=== PATIENT | female | born 1955 | race Caucasian/White ===

== ENCOUNTER 2019-12-27 08:56 | Outpatient (CLI) | payer MEDICARE, SELFPAY ==
--- NOTE | ~2019-12-27 | DEXA_ITS ---
Bone Density Report Name: Nellie Chirinos Age: 64 Sex: Female Ethnicity: White Date of : 1955 Indication: postmenopausal; height loss; prior fracture; hysterectomy; Referring Provider: Kilo Benson Study: Bone densitometry was performed. Exam Date: December 27, 2019 Accession number: [id number] Bone Density: Region BMD T-score Z-score Classification AP Spine (L1-L4) 0.894 -1.4 0.4 Osteopenia Femoral Neck (Left) 0.868 0.2 1.7 Normal Total Hip (Left) 0.882 -0.5 0.8 Normal Total Hip Bilateral Avg 0.856 -0.7 0.6 Normal Femoral Neck (Right) 0.788 -0.5 1.0 Normal Total Hip (Right) 0.829 -0.9 0.4 Normal World Health Organization criteria for BMD impression classify patients as: Normal (T-score at or above -1.0), Osteopenia (T-score between -1.0 and -2.5), or Osteoporosis (T-score at or below -2.5). 10-year Fracture Risk(1): Major Osteoporotic Fracture 12% Hip Fracture 0.6% Reported Risk Factors: [place] (), Neck BMD=0.788, BMI=32.3, previous fracture (1) FRAX(R) Version 3.08. Fracture probability calculated for an untreated patient. Fracture probability may be lower if the patient has received treatment. Previous Exams: Region Exam Age BMD T-score BMD Change BMD Change Date g/cm2 vs Baseline vs Previous AP Spine(L1-L4) 12/27/2019 64 0.894 -1.4 -0.077(-7.9%)# -0.056(-5.9%)# 03/04/2010 54 0.950 -0.9 -0.020(-2.1%) -0.020(-2.1%) 06/01/2005 49 0.970 -0.7 Total Hip(Left) 12/27/2019 64 0.882 -0.5 -0.135(-13.3%) -0.139(-13.6%) 03/04/2010 54 1.021 0.6 0.004(0.4%) 0.004(0.4%) 06/01/2005 49 1.017 0.6 Total Hip(Right) 12/27/2019 64 0.829 -0.9 -0.202(-19.6%) -0.184(-18.2%) 03/04/2010 54 1.013 0.6 -0.018(-1.7%) -0.018(-1.7%) 06/01/2005 49 1.031 0.7 *Denotes significance at 95% confidence level, LSC for AP Spine = 0.022 g/cm2, LSC for Total Hip = 0.027 g/cm2 Clinical Information Provided by Patient: Has had a low trauma fracture Has the following medical conditions: Hysterectomy Patient maximum height was 67 Menopause Age: 47 Onset of menses at age 10 Number of children 3 Impression: The patient has low bone mass, based on the Total Spine T-score. The patient has an estimated ten-year risk of hip fracture of 0.6% and an estimated ten-year risk of major fracture of 12%, based on the WHO FRAX algorithm. The patient has risk factors, including: previous fracture. No significant
--- NOTE | ~2019-12-27 | MM_ITS ---
EXAMINATION: MM screening [facility] BI w umair HISTORY: Screening mammogram TECHNIQUE: Craniocaudal and mediolateral oblique 3-D tomosynthesis images were obtained and synthetic 2-D images were generated. CAD analysis was submitted and interpreted. COMPARISON: 07/19/2016, 07/17/2015, 07/15/2014 bilateral digital screening mammogram examinations BREAST PARENCHYMAL COMPOSITION: The breasts are almost entirely fatty. FINDINGS: There is no evidence of suspicious mass, calcification, or architectural distortion to sugg est malignancy in either breast. There has been no suspicious interval change. IMPRESSION: 1. No mammographic evidence of malignancy. 2. Recommend routine screening mammography in one year. BI-RADS Category 1: Negative Reviewed, dictated and finalized at location A.
== END 2019-12-27 08:57 | disposition home or self-care (01) ==
PROVIDERS: PCP Family Medicine; Visit Provider Physician Assistant Medical
DX: Z12.31 Encounter for screening mammogram for malignant neoplasm of breast (principal); Z78.0 Asymptomatic menopausal state; M85.88 Other specified disorders of bone density and structure, other site
CPT/HCPCS: 77063; 77067; 77080

== ENCOUNTER → 2020-03-29 12:41 | Outpatient (CLI) | payer MEDICARE, SELFPAY ==
[2020-03-30 00:20] LABS: SARS-CoV-2 RNA PCR Negative
== END ==
PROVIDERS: Family Provider Family Medicine; PCP Family Medicine; Visit Provider Internal Medicine Cardiovascular Disease
DX: Z01.812 Encounter for preprocedural laboratory examination (principal); Z20.822 Contact with and (suspected) exposure to COVID-19
CPT/HCPCS: C9803; U0003; U0005

== ENCOUNTER 2020-04-01 00:25 | Day surgery (SDC) | payer MEDICARE, SELFPAY ==
[2020-03-31 15:15] VITALS: BMI 31.9
[2020-04-01] VITALS (9 sets, daily range): BP systolic 123–158; BP diastolic 71–95; PULSE 55–70; RESP 14–16; TEMP 36.2; O2SAT 96–100; BMI 32.4
--- NOTE | 2020-04-01 09:11 | P.SEDATION_ITS ---
Moderate Sedation Note-Pt Data Patient Data Allergies Allergy/AdvReac Type Severity Reaction Status Date / Time No Known Allergies Allergy Verified 03/31/20 15:31 Home Medications Medication Instructions Recorded Confirmed Type allopurinol 300 mg tablet 300 mg PO DAILY #90 tablet 01/15/19 03/31/20 Rx aspirin 81 mg tablet,delayed 81 mg PO DAILY 01/15/19 03/31/20 History release omeprazole 20 mg capsule,delayed 20 mg PO DAILY #90 cap 11/08/19 03/31/20 Rx release quinapril 40 mg tablet 40 mg PO DAILY #90 tablet 12/13/19 03/31/20 Rx spironolactone 25 mg tablet See Rx Instructions .ROUTE 01/02/20 03/31/20 Rx .COMPLEX #180 tablet fenofibrate 160 mg tablet 160 mg PO DAILY #90 tablet 01/07/20 03/31/20 Rx amlodipine 5 mg tablet 5 mg PO DAILY #30 tablet 03/04/20 03/31/20 Rx metoprolol tartrate 25 mg tablet 25 mg PO BID tablet 03/26/20 03/31/20 History Current Medications: Active Medications Sodium Chloride (Normal Saline Iv) 500 mls @ 100 mls/hr IV CONT .Q5H AMIE Sedation/Anesthesia: No previous sedation/anesthesia problems (including family history). [facility] Past Medical History Medical History (Updated 03/26/20 @ 10:14 by Pattie Crabtree CMA) Metal bone fixation hardware in place YOLI (obstructive sleep apnea) Surgical History Surgical History (Updated 03/26/20 @ 10:14 by Pattie Crabtree CMA) H/O total knee replacement History of hysterectomy Family History Family History Grandparent Hypertension Acute myocardial infarction Carcinoma of colon Father Hypertension Mother Carcinoma of colon, Onset Age: 82 Other Family history of cardiovascular disease Family history of gout Social History Social History (Updated 03/26/20 @ 10:15 by Pattie Crabtree CMA) Smoking status: Never smoker Second hand tobacco smoke exposure: No Alcohol intake: current Substance use: never Substance use type: does not use Living arrangements: with family Gender identity (if verbalized by the patient): Female Sexual Orientation (if Verbalized by the Patient): Straight or Heterosexual Spiritual care concerns: No Agree to blood products: Yes Mod Sed Physical Exam Physical Exam Pre Procedural Exam: Normal: Airway Hours since solid foods: 10 Hours since liquid intake: 10 Internal Medicine - PN: Obj Da Vital Signs Vital Signs: Vital Signs - 24 hr 04/01/20 07:53 Temperature 36.2 C L Pulse Rate 70 Respiratory Rate 16 Blood Pressure 158/95 H Pulse Oximetry 99 Meds/Results Medications: Active Medications Generic Name Dose Route Start Last Admin Trade Name Freq PRN Reason Stop Dose Admin Sodium Chloride 500 mls @ 100 mls/hr 04/01/20 07:40 Normal Saline Iv IV CONT .Q5H COUNTS INCLUDE 234 BEDS AT THE [facility] ASA Classification/Sedation ASA Classification/Sedation Risks: Risks, benefits and alternatives explained and patient/family accepted plan for sedation. Patient re-evaluated immediately prior to sedation.
--- NOTE | 2020-04-01 09:19 | WPDHPUPDATE1 ---
History and Physical Update Update Date/Time: 04/01/20 09:19 History and Physical has been reviewed, including an updated exam of the patient. There are NO changes in the patient's condition. Risks, benefits, and alternatives have been discussed and questions answered. Patient agrees to proceed with procedure.
--- NOTE | 2020-04-01 09:41 | WPDCARDPROC ---
Cardiac Cath Procedure Note Date of procedure:: 04/01/20 Performing physician:: Khai Smith MD Procedure Procedure note:: LEFT HEART CATHETERIZATION AND CORONARY ANGIOGRAM REPORT DATE OF PROCEDURE: 04/01/2020 INDICATION FOR PROCEDURE: chest pain, abnormal MPI BRIEF CLINICAL HISTORY: 64-year-old female with past medical history of hypertension, dyslipidemia. Patient was referred by Jonathan for coronary angiogram in the setting of chest discomfort and abnormal MPI. Patient's MPI from 03/12/2020 reportedly showed normal LV systolic function; ischemia in the mid anteroseptal and anterolateral blum. Benefits and risks of the procedure were discussed with the patient in depth, and informed consent was obtained prior to the procedure. Risks of the procedure include but are not limited to vascular complications including groin hematoma, retroperitoneal bleed, vessel perforation; periprocedural HI, cardiac arrhythmias, stroke, contrast induced nephropathy, and . After discussing all the benefits, risks and alternatives, patient was willing to proceed with the procedure. PROCEDURES PERFORMED: 1. Left heart catheterization- Selective left and right coronary angiogram; left ventriculogram and hemodynamic assessment 2. Selective right common femoral angiogram and deployment of Angio-Seal hemostatic device 3. Moderate sedation-CPT code 30868 MODERATE SEDATION: Midazolam 1 mg; fentanyl 25 mcg; Start time 0923 , Stop time 0937 ; Total [id number] time 14 minutes; Neetu Medrano RN was trained observer for moderate sedation. ACCESS SITE: Right common femoral artery PROCEDURE NOTE: After obtaining informed consent, patient was brought to catheterization lab and prepped and draped in a usual sterile manner. After local anesthesia with lidocaine, right common femoral artery access was taken with micropuncture needle followed by insertion of a 6 Martiniquais sheath. Selective left and right coronary angiogram was performed using 5 Martiniquais JL4 and JR4 catheters respectively. Orthogonal views were taken. Next, a 5 Martiniquais pigtail catheter was advanced in the LV cavity and was flushed with normal saline. LV pressure measurement was performed. After this, left ventriculogram was performed. The catheter was flushed again, and gradient across the aortic valve was measured on the pullback of the catheter. Finally, selective right common femoral angiogram was performed followed by successful deployment of Angio-Seal vascular closure device. Patient tolerated procedure well without any immediate procedure related complications. FINDINGS: LEFT MAIN CORONARY: The left main coronary is a large caliber vessel, no significant focal stenosis. The vessel bifurcates into LAD and dominant left circumflex branches. LEFT ANTERIOR DESCENDING ARTERY: The LAD is a medium caliber vessel, tortuous, tapers distally and becomes diminutive Very tortuous vessel near the LV apex. No significant focal stenosis seen in the LAD or its diagonal branch. LEFT CIRCUMFLEX ARTERY: The left circumflex artery is a large size, dominant vessel. It gives rise to very tortuous OM1 and OM2 branches and LPDA without significant focal stenosis. RIGHT CORONARY ARTERY: Small caliber, nondominant vessel, no significant focal stenosis. LEFT VENTRICULOGRAM: Normal LV systolic function, ejection fraction 60-70%. LVEDP 13 mmHg. HEMODYNAMIC ASSESSMENT: Opening pressure 154/85 mmHg , closing pressure 143/81 , LVEDP 13 mmHg , no significant gradient across aortic valve on the pullback of pigtail catheter. RIGHT COMMON FEMORAL ARTERY: Patent CONCLUSIONS: 1. No angiographically significant obstructive CAD; tortuous coronary arteries; left dominant coronary system. 2. Normal LV systolic function, ejection fraction 67%, LVEDP 13 mmHg. PLAN/RECOMMENDATIONS: Optimal medical treatment and risk factor modification. Follow up with Dr. Castillo. This document was completed by using [employer]
[2020-04-01] MEDS: SODIUM CHLORIDE 0.9% IV 1,000 ML 125 ML IV CONT (10:28)
--- NOTE | 2020-04-01 14:19 | SUR.PHASEII ---
Dsicharge instructions provided post [facility] including site care, Angioseal management, moderate sedation, and reportable s/s. Patient verbalizes understanding. PIV removed. VSS. Patient A & O x 4 and denies pain. Patient escorted to vehicle with staff, where she was picked up by her .
== END 2020-04-01 14:15 | disposition home or self-care (01) ==
PROVIDERS: Family Provider Family Medicine; PCP Family Medicine; Visit Provider Internal Medicine Cardiovascular Disease
PROC: 4A023N7 Measurement of Cardiac Sampling and Pressure, Left Heart, Percutaneous Approach (ICD-10-PCS; CPT 93452; principal; 2020-04-01 08:30)
DX: R94.39 Abnormal result of other cardiovascular function study (principal); R07.89 Other chest pain; I10 Essential (primary) hypertension; E78.5 Hyperlipidemia, unspecified; G47.33 Obstructive sleep apnea (adult) (pediatric); Z79.82 Long term (current) use of aspirin
CPT/HCPCS: 93458; C1760; C1887; C1894; C9803; G0269; J1644; J2250; J3010; J7040; U0003; U0005

== ENCOUNTER → 2020-06-14 01:17 | Outpatient (CLI) | payer MEDICARE, SELFPAY ==
[2020-06-14 18:53] LABS: SARS-CoV-2 RNA PCR Negative
== END ==
PROVIDERS: PCP Family Medicine; Visit Provider Internal Medicine Gastroenterology
DX: Z01.812 Encounter for preprocedural laboratory examination (principal); Z20.822 Contact with and (suspected) exposure to COVID-19
CPT/HCPCS: C9803; U0003; U0005

== ENCOUNTER 2020-06-17 02:16 | Day surgery (SDC) | payer MEDICARE, SELFPAY ==
[2020-06-06 11:04] VITALS: BMI 31.6
[2020-06-17 08:36] VITALS: BP 136/89; PULSE 68; RESP 18; TEMP 36.6; O2SAT 99; BMI 31.1
[2020-06-17] MEDS: LACTATED RINGERS 1,000 ML 150 ML IV CONT (08:46)
--- NOTE | 2020-06-17 09:11 | WPDANESEPPF ---
Anes - Initial Pre Proc Eval Procedure: Operation Date: 06/17/20 09:30 Proposed Procedures p Screening Colonoscopy - Jeremy Light MD Date/Time: 06/17/20 09:11 Surgeon: Jeremy Light MD Pre Op Diagnosis: family hx of colon ca, neoplasm screening Patient Data Age: 64 Gender: F Height: 5 ft 6 in Weight: 87.5 kg Last Vital Signs Temp 98 F 06/17/20 08:36 Pulse 68 06/17/20 08:36 Resp 18 06/17/20 08:36 BP 136/89 06/17/20 08:36 Pulse Ox 99 06/17/20 08:36 Allergies Allergy/AdvReac Type Severity Reaction Status Date / Time No Known Allergies Allergy Verified 06/17/20 08:34 Home Medications Medication Instructions Recorded Confirmed Type aspirin 81 mg tablet,delayed 81 mg PO DAILY 01/15/19 06/17/20 History release omeprazole 20 mg capsule,delayed 20 mg PO DAILY #90 cap 11/08/19 06/17/20 Rx release quinapril 40 mg tablet 40 mg PO DAILY #90 tablet 12/13/19 06/17/20 Rx fenofibrate 160 mg tablet 160 mg PO DAILY #90 tablet 01/07/20 06/17/20 Rx metoprolol tartrate 25 mg tablet 25 mg PO QAM tablet 04/25/20 06/17/20 History allopurinol 300 mg tablet 300 mg PO DAILY #90 tablet 04/29/20 06/17/20 Rx amlodipine 5 mg PO DAILY 06/06/20 06/17/20 History fiber 1 tab-cap PO DAILY 06/06/20 06/17/20 History glucosamine-chondroitin 1 tab-cap PO DAILY 06/06/20 06/17/20 History metoprolol tartrate 50 mg PO QPM 06/06/20 06/17/20 History spironolactone 50 mg PO DAILY 06/06/20 06/17/20 History Patient hx anesthesia problems: none Family hx anesthesia problems: none PMFSH Past Medical History Medical History (Updated 04/17/20 @ 14:02 by Hiram Sandoval MD) Metal bone fixation hardware in place YOLI (obstructive sleep apnea) using dental device Surgical History Surgical History (Updated 03/26/20 @ 10:14 by Pattie Crabtree CMA) H/O total knee replacement History of hysterectomy Family History Family History Grandparent Hypertension Acute myocardial infarction Carcinoma of colon Father Hypertension Mother Carcinoma of colon, Onset Age: 82 Other Family history of cardiovascular disease Family history of gout Social History Social History (Updated 03/26/20 @ 10:15 by Pattie Crabtree CMA) Smoking status: Never smoker Second hand tobacco smoke exposure: No Alcohol intake: current Substance use: never Substance use type: does not use Living arrangements: with family Gender identity (if verbalized by the patient): Female Spiritual care concerns: No Agree to blood products: Yes Anes - Eval Final PreProcedure Day of Procedure 06/17/20 09:11 Patient weight: overweight Heart: regular rate and rhythm Lungs: clear to auscultation Airway: Mallampati scale class II Neurological: alert and oriented Last oral intake: >/= 8 hours ASA classification: III Emergent: no Anesthetic plan: proceed Anesthesia type and monitoring: general GIVS and standard monitoring Informed Consent: The patient's anesthetic plan and its attendant risks and benefits were discussed with the patient/family/POA. Questions were solicited and answers provided to the satisfaction of the patient/family/POA.
--- NOTE | 2020-06-17 09:24 | PM.HPGS ---
History of Present Illness History of Present Illness Consent: Risks, benefits, and alternatives have been discussed and questions answered. Patient agrees to proceed with procedure. Chief complaint: family hx of colon ca, neoplasm screening Narrative: Nellie Chirinos is a 64 year old female referred for colon cancer screening. She has a strong family history of colon cancer on her mother's side Review of Systems Review of Systems: All systems reviewed & are unremarkable except as noted in HPI and below PMFSH Past Medical History Medical History Metal bone fixation hardware in place YOLI (obstructive sleep apnea) using dental device Surgical History Surgical History H/O total knee replacement History of hysterectomy Family History Family History Grandparent Hypertension Acute myocardial infarction Carcinoma of colon Father Hypertension Mother Carcinoma of colon, Onset Age: 82 Other Family history of cardiovascular disease Family history of gout Social History Social History Smoking status: Never smoker Second hand tobacco smoke exposure: No Alcohol intake: current Substance use: never Substance use type: does not use Living arrangements: with family Gender identity (if verbalized by the patient): Female Spiritual care concerns: No Agree to blood products: Yes Meds Home Medications and Allergies Home Medications Medication Instructions Recorded Confirmed Type aspirin 81 mg tablet,delayed 81 mg PO DAILY 01/15/19 06/17/20 History release omeprazole 20 mg capsule,delayed 20 mg PO DAILY #90 cap 11/08/19 06/17/20 Rx release quinapril 40 mg tablet 40 mg PO DAILY #90 tablet 12/13/19 06/17/20 Rx fenofibrate 160 mg tablet 160 mg PO DAILY #90 tablet 01/07/20 06/17/20 Rx metoprolol tartrate 25 mg tablet 25 mg PO QAM tablet 04/25/20 06/17/20 History allopurinol 300 mg tablet 300 mg PO DAILY #90 tablet 04/29/20 06/17/20 Rx amlodipine 5 mg PO DAILY 06/06/20 06/17/20 History fiber 1 tab-cap PO DAILY 06/06/20 06/17/20 History glucosamine-chondroitin 1 tab-cap PO DAILY 06/06/20 06/17/20 History metoprolol tartrate 50 mg PO QPM 06/06/20 06/17/20 History spironolactone 50 mg PO DAILY 06/06/20 06/17/20 History Allergies Allergy/AdvReac Type Severity Reaction Status Date / Time No Known Allergies Allergy Verified 06/17/20 08:34 Vital Signs Vital Signs - 24 hr 06/17/20 08:36 Temperature 36.6 C Pulse Rate 68 Respiratory Rate 18 Blood Pressure 136/89 Pulse Oximetry 99 Exam Resp: Auscultation: clear to auscultation bilaterally Cardio: Rate: regular rate Rhythm: regular rhythm GI: GI Palp: Yes Soft to palpation and No Tenderness to palpation present (GI) Assessment and Plan Assessment and plan (1) Colon cancer screening: Code(s): Z12.11 - Encounter for screening for malignant neoplasm of colon Status: Acute Assessment and Plan: Colonoscopy with possible biopsy or polypectomy or cautery or injection of substances.
[2020-06-17 09:53] VITALS: BP 84/46; PULSE 56; RESP 21; O2SAT 96
[2020-06-17 10:03] VITALS: BP 86/44; PULSE 56; RESP 19; O2SAT 97
== END 2020-06-17 10:48 | disposition home or self-care (01) ==
PROVIDERS: PCP Family Medicine; Visit Provider Internal Medicine Gastroenterology
PROC: 0DJD8ZZ Inspection of Lower Intestinal Tract, Via Natural or Artificial Opening Endoscopic (ICD-10-PCS; CPT 45378; principal; 2020-06-17 09:30)
DX: Z12.11 Encounter for screening for malignant neoplasm of colon (principal); Z80.0 Family history of malignant neoplasm of digestive organs; G47.33 Obstructive sleep apnea (adult) (pediatric); Z79.82 Long term (current) use of aspirin
CPT/HCPCS: G0105; C9803; J2704; J7120; U0003; U0005

== ENCOUNTER 2020-11-07 10:10 | Outpatient (CLI) | payer MEDICARE, SELFPAY ==
--- NOTE | ~2020-11-07 | US_ITS ---
EXAMINATION: US abdomen limited EXAM DATE: 11/07/2020 10:47 INDICATION: R74.8 - Abnormal levels of other serum enzymes. TECHNIQUE: Multiple grayscale and Doppler images of the abdomen right upper quadrant were obtained (b y a technologist who performed the scan) and subsequently reviewed. There is no prior study for clint carrasco. FINDINGS: The pancreatic head and body are normal in appearance. The pancreatic tail is not visualized. The l iver has normal echogenicity and contour. There are no focal liver lesions identified. There is no evidence of intrahepatic biliary duct dilation. Portal venous flow was seen in the hepatopedal, nor mal direction and has normal Doppler waveform. No right-sided hydronephrosis. Common bile duct measures 4 mm, which is normal. The gallbladder wall is normal in thickness, with ex pected amount of distention. No sonographic evidence of pericholecystic fluid. There is no cholelit hiases. Technologist performing exam reports patient did not demonstrate sonographic White's sign. Please note that this sign is less reliable in patients who have received pain medication. IMPRESSION: 1. Unremarkable abdominal ultrasound exam. Reviewed, dictated and finalized at location B.
== END 2020-11-07 10:11 | disposition home or self-care (01) ==
PROVIDERS: PCP Family Medicine; Visit Provider Physician Assistant Medical
DX: R74.8 Abnormal levels of other serum enzymes (principal); E11.9 Type 2 diabetes mellitus without complications
CPT/HCPCS: 76705

== ENCOUNTER 2021-03-12 10:37 | Outpatient (CLI) | payer MEDICARE, SELFPAY ==
--- NOTE | ~2021-03-12 | MM_ITS ---
EXAMINATION: MM screening [facility] BI w umair HISTORY: Screening mammogram TECHNIQUE: Craniocaudal and mediolateral oblique 3-D tomosynthesis images were obtained and synthetic 2-D images were generated. CAD analysis was submitted and interpreted. COMPARISON: 12/27/2019, 07/19/2016, 07/17/2015 BREAST PARENCHYMAL COMPOSITION: The breasts are almost entirely fatty. FINDINGS: There is no evidence of suspicious mass, calcification, or architectural distortion to sugg est malignancy in either breast. There has been no suspicious interval change. IMPRESSION: 1. No mammographic evidence of malignancy. 2. Recommend routine screening mammography in one year. BI-RADS Category 1: Negative Reviewed, dictated and finalized at location A. D HAND
== END 2021-03-12 10:38 | disposition home or self-care (01) ==
PROVIDERS: PCP Family Medicine; Visit Provider Physician Assistant Medical
DX: Z12.31 Encounter for screening mammogram for malignant neoplasm of breast (principal)
CPT/HCPCS: 77063; 77067

== ENCOUNTER 2022-05-14 08:16 | Outpatient (CLI) | payer MEDICARE, SELFPAY ==
--- NOTE | ~2022-05-14 | MM_ITS ---
EXAMINATION: MM screening [facility] [place] BI w umair HISTORY: Screening mammogram TECHNIQUE: Craniocaudal and mediolateral oblique 3-D tomosynthesis images were obtained and synthetic 2-D images were generated. CAD analysis was submitted and interpreted. COMPARISON: 03/12/2021, 12/27/2019, 07/09/2016 BREAST PARENCHYMAL COMPOSITION: The breasts are almost entirely fatty. FINDINGS: No suspicious mass, calcification, or architectural distortion are identified in either nadira ast to suggest malignancy. There has been no suspicious interval change. IMPRESSION: 1. No mammographic evidence of malignancy. 2. Recommend routine screening mammography in one year. BI-RADS Category 1: Negative Reviewed, dictated and finalized at location A. E FUND MANAGER
== END 2022-05-14 08:17 | disposition home or self-care (01) ==
LOC: ANHIMG 08:17
PROVIDERS: PCP Family Medicine; Visit Provider Family Medicine
DX: Z12.31 Encounter for screening mammogram for malignant neoplasm of breast (principal)
CPT/HCPCS: 77063; 77067

== ENCOUNTER 2023-06-14 16:11 | Outpatient (CLI) | payer MEDICARE, SELFPAY ==
--- NOTE | ~2023-06-14 | MM_ITS ---
EXAMINATION: MM screening [facility] BI w umair HISTORY: Screening mammogram TECHNIQUE: Craniocaudal and mediolateral oblique 3-D tomosynthesis images were obtained and synthetic 2-D images were generated. CAD analysis was submitted and interpreted. COMPARISON: 05/14/2022, 03/12/2021 bilateral screening mammogram examinations BREAST PARENCHYMAL COMPOSITION: The breasts are almost entirely fatty. FINDINGS: Scattered bilateral benign calcifications. There is no evidence of suspicious mass, calcifi cation, or architectural distortion to suggest malignancy in either breast. There has been no suspici ous interval change. IMPRESSION: 1. No mammographic evidence of malignancy. 2. Recommend routine screening mammography in one year. BI-RADS Category 1: Negative Reviewed, dictated and finalized at location A.
== END 2023-06-14 16:12 | disposition home or self-care (01) ==
PROVIDERS: PCP Family Medicine; Visit Provider Family Medicine
DX: Z12.31 Encounter for screening mammogram for malignant neoplasm of breast (principal)
CPT/HCPCS: 77063; 77067

== ENCOUNTER 2024-01-16 09:20 | Outpatient (CLI) | payer MEDICARE, SELFPAY ==
--- NOTE | ~2024-01-16 | DEXA_ITS ---
Bone Density Report Name: ROSALINA HALEY Age: 68 Sex: Female Ethnicity: White Date of : 1955 Indication: osteopenia; hysterectomy; Referring Provider: KURT NUNN Study: Bone densitometry was performed. Exam Date: January 16, 2024 Accession number: [id number] Bone Density: Region BMD T-score Z-score Classification AP Spine(L1-L4) 0.994 -0.5 1.6 Normal Femoral Neck (Left) 0.819 -0.3 1.5 Normal Total Hip (Left) 0.837 -0.9 0.6 Normal Femoral Neck (Right) 0.791 -0.5 1.3 Normal Total Hip (Right) 0.862 -0.7 0.9 Normal Total Hip Mean 0.850 -0.8 0.8 Normal World Health Organization criteria for BMD impression classify patients as: Normal (T-score at or above -1.0), Osteopenia (T-score between -1.0 and -2.5), or Osteoporosis (T-score at or below -2.5). 10-year Fracture Risk: FRAX not reported because: All T-scores for Spine Total, Hip Total, Femoral Neck at or above -1.0 Previous Exams: Region Exam Age BMD T-score BMD Change BMD Change Date g/cm2 vs Baseline vs Previous AP Spine (L1-L4) 01/16/2024 68 0.994 -0.5 0.100 (11.2%)* 0.100 (11.2%)* 12/27/2019 64 0.894 -1.4 Total Hip(Left) 01/16/2024 68 0.837 -0.9 -0.045 (-5.1%) -0.045 (-5.1%) 12/27/2019 64 0.882 -0.5 Total Hip(Right) 01/16/2024 68 0.862 -0.7 0.033 (4.0%)* 0.033 (4.0%)* 12/27/2019 64 0.829 -0.9 *Denotes significance at 95% confidence level, LSC for AP Spine = 0.022 g/cm2, LSC for Total Hip = 0.027 g/cm2 Clinical Information Provided by Patient: Has the following medical conditions: Hysterectomy Patient maximum height was 67 Menopause Age: 47 Drinks caffeinated beverages Onset of menses at age 10 Number of children 3 Impression: The patient has normal bone mass. The BMD for the Total Hip(Left) decreased, changing by -5.1% since the last DXA exam. Discussion: BONE DENSITY IS ABOVE THE MINIMUM DESIRABLE LEVEL AT ALL SKELETAL SITES TESTED. This patient?s bone mineral density is above the minimum desirable level (T-score -1.0 or better) at all sites measured. The patient should follow a healthful lifestyle (good nutrition with adequate calcium and vitamin D, and appropriate weight-bearing exercise). Follow-Up: Consider repeating this study in 3 to 4 years to reassess this patient's status, or sooner if there is some new clinical indication. Reported by: CHRISTA on 01/16/2024 9:52:00 AM. Reviewed, dictated and finalized at location Cecil CALIXTO
== END 2024-01-16 09:21 | disposition home or self-care (01) ==
LOC: ANHIMG 09:21
PROVIDERS: PCP Family Medicine; Visit Provider Student in an Organized Health Care Education/Training Program
DX: N95.9 Unspecified menopausal and perimenopausal disorder (principal)
CPT/HCPCS: 77080

== ENCOUNTER 2024-08-16 10:21 | Outpatient (CLI) | payer MEDICARE, SELFPAY ==
--- NOTE | ~2024-08-16 | MM_ITS ---
EXAMINATION: MM screening aria BI w umair HISTORY: Screening TECHNIQUE: Craniocaudal and mediolateral oblique 3-D tomosynthesis images were obtained and synthetic 2-D images were generated. CAD analysis was submitted and interpreted. COMPARISON: Comparison to multiple prior studies sequentially, with oldest reviewed study dated 07/16. BREAST PARENCHYMAL COMPOSITION: Not dense: There are scattered areas of fibroglandular density. FINDINGS: There is no evidence of suspicious mass, calcification, or architectural distortion to sugg est malignancy in either breast. There has been no suspicious interval change. IMPRESSION: 1. No mammographic evidence of malignancy. 2. Recommend routine screening mammography in one year. BI-RADS Category 1: Negative Reviewed, dictated and finalized at location B.
--- OUTSIDE RECORDS SUMMARY | 2024-08-16 11:13 | XMS_ITS | Encounter Summary ---
Author Organization [facility] Address [address] [address] Care Team Providers Care Chief Minister Name Role Phone Galo Helms MD Unavailable [phone] Hiram Sandoval MD Primary Care Provider [phone] Encounter Details Date Type Department Care Team (Late st Contact Info) Description 07/27/2023 Lab Requisition [facility] - DermPath Lab [address] [place] [address] Mayda Gomez DO [address] [place] [address] Social History Tobacco Use Types Packs/Day Years Used Date Smoking Tobacco: Never Smokeless Tobacco: Never Alcohol Use Standard Drinks/Week Comments No 0 (1 standard drink = 0.6 oz pur e alcohol) rarely Comments Unknown Sex and Gender Information Value Date Recorded Sex Assigned at Not on file Legal Sex Female 12:33 PM CDT Gender Identity Not on file Sexual Orientation Not on file documented as of this encounter Functional Status * Is person deaf or have serious hearing difficulty? Answer Date of Assessment Author No 01/13/2018 11:18 AM Idania Laboy APRN-CNP * Is person blind or have serious difficulty seeing? Answer Date of Assessment Author No 01/13/2018 11:18 AM Idania Laboy APRN-CNP * Does person have serious difficulty walking/climbing stairs? Answer Date of Assessment Author No 01/13/2018 11:18 AM Idania Laboy, GUN SYNCHRONIZER-GUTTER HANGER * Does person have difficulty dressing/bathing? Answer Date of Assessment Author No 01/13/2018 11:18 AM Idania Laboy, GUN SYNCHRONIZER-GUTTER HANGER * Does person have difficulty doing errands alone? Answer Date of Assessment Author No 01/13/2018 11:18 AM Idania Laboy, GUN SYNCHRONIZER-GUTTER HANGER documented as of this encounter Mental Status * Does person have difficulty concentrating/remembering/making decisions? Answer Entry Date Author No 01/13/2018 11:18 AM Idania Laboy, GUN SYNCHRONIZER-GUTTER HANGER documented in this encounter Plan of Treatment Not on file documented as of this encounter Goals Goal Patient Goal Type Associated Problems Recent Progress Patient-Stated? Author Medication Management General On track( 023 1:44 PM SAND CUTTER OPERATOR) No Natacha Donald RN Note: Expected end date: on-going Interventions: Take all medications as prescribed Let your doctor know right away about any changes in your medications Make sure to request a refill of your medication at least one week prior to your last dose documented as of this encounter Procedures Procedure Name Priority Date/Time Associated Diagnosis Comments DERMATOPATHOLOGY Routine 07/27/2023 9:35 AM CDT documented in this encounter Results * DERMATOPATHOLOGY (07/27/2023 9:35 AM CDT) Case Report Dermatopathology Report Case: [id number] Authorizing Provider: Mayda Gomez DO Collected: 07/27/2023 09:35 AM Ordering Location: [facility] - Received: 07/28/2023 03:46 PM DermPath Lab Pathologist: Levy Shabazz MD Specimen: Skin, right lower mucoral lip 4 1:27 PM CDT DERMATOPATHOLOGY LABORATORY Final Diagnosis Specimen A. SKIN, right lower mucoral lip: MUCOSAL LENTIGO (LABIAL MELANOTIC MACULE) (L81.4) 4 1:27 PM CDT DERMATOPATHOLOGY LABORATORY at 1327 CDT Clinical History Mucoral lentigo; r/o atypia. 4 1:27 PM CDT DERMATOPATHOLOGY LABORATORY Gross Description Specimen A: Received is one formalin filled container labeled with the patient's name and designated right lower mucoral lip. The specimen consists of a shave biopsy measuring 7x4x1 mm. Jar 0. 4 1:27 PM CDT DERMATOPATHOLOGY LABORATORY Microscopic Description Specimen A. SKIN, right lower mucoral lip: The specimen is taken from a mucocutaneous surface and shows acanthosis and prominent pigmentation in the basal layer. The keratinocytes are mature and there is a minimal increase in melanocytes. 4 1:27 PM CDT DERMATOPATHOLOGY LABORATORY Disclaimer An external and internal positive and negative controls are appropriate for the histochemical, immunohistochemical and immunofluorescence stain(s) in this case (if any), except where stated explicitly. The performance characteristics of the stain(s) cited in this report were developed and its performance characteristic determined by the Dermatopathology Laboratory at [facility], directed by Dr. Bunny Shabazz. These tests need not be, and therefore are not, approved by the [place] Food and Drug Administration. The tests are used for clinical purposes. Billing Codes Specimen Charges Stain Charges 43879 1 4 1:27 PM CDT DERMATOPATHOLOGY LABORATORY Embedded Images 4 1:27 PM CDT DERMATOPATHOLOGY LABORATORY Pathology/Cytolo gy TISSUE SPECIMEN FROM SKIN / Unknown 07/27/2023 9:35 AM CDT 07/28/2023 3:46 PM CDT us Mayda Gomez DO LAB - PATHOLOGY/CYTOLOGY ORDERABLES Final Result DERMATOPATHOLOGY LABORATORY [facility] - Department of Dermatology [address], [address] [phone] documented in this encounter Visit Diagnoses Not on filedocumented in this encounter Care Teams Chief Minister Relationship Specialty Start Date End Date Hiram Sandoval MD [address] [place] [address] PCP - General Family Medicine 4/30/18 [place] [id number] [address] Orthopedic Surgery 07/04/17 documented as of this encounter
--- OUTSIDE RECORDS SUMMARY | 2024-08-16 11:13 | XMS_ITS | Clinical Summary ---
Author Organization [facility] Address [address] [place] [address] Care Team Providers Care Solar Panel Technician Name Role Phone Galo Helms MD Unavailable [phone] Hiram Sandoval MD Primary Care Provider [phone] Source Comments [facility],non-owned Affiliates and Associated Physician Practices is amultiple site organization consisting of ambulatory clinics and hospital sitesin [place], [place], [place] and [place]. This disclosure is being madepursuant to the Care Everywhere program and may not contain all information available regarding this patient. Last updated 17.[facility] I AM AT Allergies No known active allergies Medications * Be aware that medications may not be up to date on this document. Alwaysverify current medications with the patient. allopurinol (ZYLOPRIM) 300 MG tablet every other day TAKES IN THE PM 03/11/2017 Active Glucosamine-Cho ndroit-Vit C-Mn (GLUCOSAMINE 1500 COMPLEX PO) Take by mouth once daily Active FIBER PO Take by mouth once daily Active omeprazole (PRILOSEC) 20 MG capsule Take 1 (one) capsule by mouth at bedtime Active hydroCHLOROthia zide (HYDRODIURIL) 12.5 MG 06/03/2021 Active quinapril (ACCUPRIL) 40 MG tablet Take 1 (one) tablet by mouth 10/23/2020 Active metFORMIN (GLUCOPHAGE) 850 MG tablet TAKE 1 TABLET BY MOUTH TWICE A DAY WITH A MEAL 08/31/2021 Active atorvastatin (Lipitor) 10 MG tablet Take 1 (one) tablet by mouth at bedtime Active amLODIPine (Norvasc) 5 MG tablet Take 1 (one) tablet by mouth once daily 12/24/2021 Active Active Problems Problem Noted Date Diagnosed Date History of total right knee replacement 02/22/20 18 Status post total left knee replacement 11/01/19 18 Primary osteoarthritis of left knee 08/25/2017 Primary osteoarthritis of right knee 07/04/2017 Resolved Problems Problem Noted Date Diagnosed Date Resolved Date Closed fracture of right tib ial plateau with routine healing 07/04/2017 01/02/2018 Immunizations Immunization Administration Dates Next Due iNFLUENZA VACCINE, RECOM-IGLESIAS, QUADR. (FLUBLOCK QUADRIVALENT; 18Y+) (RIV4) 12/13/2017 Family History Medical History Relation Name Comments Alcohol abuse Brother 1 Cancer - Colon Mother Diabetes - Type 2 Sister Relation Name Status Comments Brother 1 Alive Brother 2 Alive Father Alive Mother Sister Alive Social History Tobacco Use Types Packs/Day Years Used Date Smoking Tobacco: Never Smokeless Tobacco: Never Alcohol Use Standard Drinks/Week Comments No 0 (1 standard drink = 0.6 oz pur e alcohol) rarely Comments Unknown Sex and Gender Information Value Date Recorded Sex Assigned at Not on file Legal Sex Female 12:33 PM CDT Gender Identity Not on file Sexual Orientation Not on file Last Filed Vital Signs Vital Sign Reading Time Taken Comments Blood Pressure 158/102 03/25/2022 1:45 PM OIL WELL DRILLER Pulse 87 03/25/2022 1:45 PM OIL WELL DRILLER Temperature 36.6 C (97.9 F) 09/10/2021 2:10 PM CDT Respiratory Rate 16 01/13/2018 8:35 AM OIL WELL DRILLER Oxygen Saturation 99% 03/25/2022 1:45 PM OIL WELL DRILLER Inhaled Oxygen Concentration - - Weight 82.6 kg (182 lb) 03/25/2022 1:45 PM OIL WELL DRILLER Height 167.6 cm (5' 6) 03/25/2022 1:45 PM OIL WELL DRILLER Body Mass Index 29.38 03/25/2022 1:45 PM OIL WELL DRILLER Plan of Treatment Health Maintenance Due Date Last Done Comments BONE DENSITY TESTING 1955 COLOGUARD (AGES 45-75) - COLON CA SCREENING 1953 COLON MONITORING 1953 COLONOSCOPY - COLON CA SCREENING 1953 CT COLONOGRAPHY - COLON CA SCREENING 1955 Colorectal Cancer Screening 1955 FIT - COLON CA SCREENING 1953 FLEX SIG - COLON CA SCREENING 1955 MAMMOGRAM 1953 DTAP/TDAP/TD VACCINES (1 - Tdap) 1972 PNEUMOCOCCAL VACCINE 50+ (1 of 1 - PCV) 11/30/2003 ZOSTER VACCINE (1 of 2) 11/30/2003 COVID-19 VACCINE (4 - season) 2023 12/09/2020, 05/01/2020, 04/10/2020 DEPRESSION SCREENING 03/07/2024 MEDICARE AWV CALENDAR YEAR 2024 INFLUENZA VACCINE (Season Ended) 2024 12/09/2020, 11/13/2019, 12/13/2017 SCREENING FOR DIABETES 03/25/2025 , 11/04/2021, 09/10/2021, Additional history exists Respiratory Syncytial Virus (RSV) Vaccine Pt: or over 60 yrs (1 - 1-dose 75+ series) 2028 HEPATITIS C SCREENING Completed 09/10/2021 HEPATITIS B VACCINE Aged Out No longe r eligible based on patient's age to complete this topic HIB VACCINE Aged Out No longer eligi ble based on patient's age to complete this topic HPV VACCINE Aged Out No longer eligi ble based on patient's age to complete this topic MENINGOCOCCAL (Group B) VACCINE SHARED DECISION-MAKING Aged Out No longer eligible based on patient's age to complete this topic MENINGOCOCCAL GROUPS A/C/Y/W VACCINE Aged Out No longer eligible based on patient's age to complete this topic Goals Goal Patient Goal Type Associated Problems Recent Progress Patient-Stated? Author Medication Management General On track( 023 1:44 PM OIL WELL DRILLER) No Natacha Donald, RN Note: Expected end date: on-going Interventions: Take all medications as prescribed Let your doctor know right away about any changes in your medications Make sure to request a refill of your medication at least one week prior to your last dose Medical Devices Implanted Type Area Psychiatric Tech Device Identifier Shelf Expiration Date Model / Serial / Lot Cmnt Bone Cblt 40gm Hvisc Strl Implanted:Qty: 2 on 10/12/2017 by Galo Helms MD at [facility] Left: Knee [employer] 12/04/2018 600-15-000 / / [id number] Nail 10mm 31.5cm Im Tib Ti Kendrick Strl Grn Implanted:Qty: 1 on 10/12/2017 by Galo Helms MD at [facility] Left: Knee Synthes [employer] 06/02/2027 [id number] / / [id number] Cmpnt Fem Kn Lt Cr Cmnt Prm Vngrd Intlk Implanted:Qty: 1 on 10/12/2017 by Galo Helms MD at [facility] Left: Knee [employer] 07/19/2027 [id number] / / [id number] Cmpnt Ptlr Std 28mm 3 Pg Kn Ser A Implanted:Qty: 1 on 10/12/2017 by Galo Helms MD at [facility] Left: Knee [employer] 01/01/2022 [id number] / / [id number] As Tibial Bearing E1 Antioxidant [id number] Implanted:Qty: 1 on 10/12/2017 by Galo Helms MD at [facility] Left: Knee 06/30/2021 [id number] / / [id number] As Tibial Bearing Implanted:Qty: 1 on 01/11/2018 by Galo Helms MD at [facility] Right: Knee [employer] [id number] / / [id number] Cmnt Bone Cblt 40gm Hvisc Strl Implanted:Qty: 1 on 01/11/2018 by Galo Helms MD at [facility] Right: Knee [employer] 600-15- / / [id number] Cmpnt Ptlr Std 31mm 3 Pg Kn Ser A Implanted:Qty: 1 on 01/11/2018 by Galo Helms MD at [facility] Right: Knee [employer] 12/09/2022 [id number] / / [id number] Cmpnt Fem Kn Rt Cr Cmnt Prm Vngrd Intlk Implanted:Qty: 1 on 01/11/2018 by Galo Helsm MD at [facility] Right: Knee [employer] 11/20/2027 [id number] / / [id number] Tray Tib 71mm As Mx Kn Intlk Cocr 1 Pc Implanted:Qty: 1 on 01/11/2018 by Galo Helms MD at [facility] Right: Knee [employer] 12/02/2027 [id number] / / [id number] Procedures Procedure Name Priority Date/Time Associated Diagnosis Comments COMPREHENSIVE METABOLIC PANEL Routine 03/25/2022 2:51 PM OIL WELL DRILLER Nonalcoholic fatty liver disease HEPATITIS C AB SCREEN RFLX NAAT QUANT STAT 09/10/2021 4:21 PM CDT Nonalcoholic fatty liver disease from Last 3 Months or Most Recently Relevant to Health Maintenance Results * (ABNORMAL) COMPREHENSIVE METABOLIC PANEL (03/25/2022 2:51 PM OIL WELL DRILLER) BUN 17 7 - 26 mg/dL 03/25/2022 3:57 PM [facility] Creatinine 0.77 0.56 - 0.96 mg/dL 03/25/2022 3:57 PM [facility] Sodium 143 136 - 145 mmol/L 03/25/2022 3:57 PM [facility] Potassium 4.4 3.5 - 4.5 mmol/L 03/25/2022 3:57 PM [facility] Chloride 106 98 - 107 mmol/L 03/25/2022 3:57 PM [facility] CO2 23 22 - 29 mmol/L 03/25/2022 3:57 PM [facility] Glucose 98 70 - 115 mg/dL 03/25/2022 3:57 PM [facility] Calcium 10.2 8.4 - 10.2 mg/dL 03/25/2022 3:57 PM [facility] Protein Total 7.5 6.0 - 8.3 g/dL 03/25/2022 3:57 PM [facility] Albumin 4.2 3.4 - 5.0 g/dL 03/25/2022 3:57 PM [facility] Bilirubin Total 1.3(H) 0.2 - 1.2 mg/dL 03/25/2022 3:57 PM [facility] Alkaline Phosphatase 73 40 - 150 U/L 03/25/2022 3:57 PM [facility] ALT 26 5 - 55 U/L 03/25/2022 3:57 PM [facility] AST 18 5 - 34 U/L 03/25/2022 3:57 PM [facility] Anion Gap 18 8 - 18 03/25/2022 3:57 PM [facility] BUN/Creatinine Ratio 22 7 - 23 03/25/2022 3:57 PM [facility] Osmolality Calculated 298 270 - 300 mOsm/kg 03/25/2022 3:57 PM [facility] Albumin/Globulin Ratio 1.3 1.1 - 2.3 03/25/2022 3:57 PM [facility] eGFR by CKD-EPI 84(L) >=90 mL/min/1.7 3 m2 03/25/2022 3:57 PM [facility] Blood BLOOD SPECIMEN / Unknown Lab Venipuncture / Unknown 03/25/2022 2:51 PM OIL WELL DRILLER 03/25/2022 3:[address] [facility] LAB - CHEMISTRY ORDERABLES Final Result [facility] [address] [place] [phone], [facility] [phone] * HEPATITIS C AB SCREEN RFLX NAAT QUANT (09/10/2021 4:21 PM CDT) Hepatitis C Antibody Non-react cristina Non-reac tive 09/10/2021 6:20 PM CDT [facility] Comment:Hepatitis C Antibody screen indicates no serologic evidence of past or current infection with Hepatitis C Virus. Patients with unexplained liver disease who are immunocompromised or suspected of having acute Hepatitis C infection may benefit from Nucleic Acid Test (LISA) for Hepatitis C Viral RNA to confirm Hepatitis C status. Blood BLOOD SPECIMEN / Unknown Lab Venipuncture / Unknown 09/10/2021 4:21 PM CDT 09/10/2021 4:54 PM CDT us Petra Kamara MD LAB - CHEMISTRY ORDERABLES Final Result [facility] [address] [place] [address], [facility] [phone] from Last 3 Months or Most Recently Relevant to Health Maintenance Insurance [facility] MANAGED MEDICARE ADV [facility] MANAGED MEDICARE ADV Advance Directives * Full Code (Latest Code Status on File) Date Activated Date Inactivated Comments 01/11/2018 5:54 PM 01/13/2018 12:49 PM * Full Code Date Activated Date Inactivated Comments 10/12/2017 4:54 PM 10/14/2017 1:32 PM Care Teams Solar Panel Technician Relationship Specialty Start Date End Date Hiram Sandoval MD [address] [place] [phone] PCP - General Family Medicine 07/04/17 [place] [id number] [phone] Orthopedic Surgery 07/04/17
--- OUTSIDE RECORDS SUMMARY | 2024-08-16 11:13 | XMS_ITS | Referral Summary ---
Author Organization [facility] [place] [address] Address [address] [address] [place] [address] Care Team Providers Care Screw Down Name Role Phone Hiram Sandoval MD Primary Care Provider [phone] Allergies No known active allergies Medications quinapriL (ACCUPRIL) 40 mg tablet Take 1 tablet (40 mg total) by mouth daily Active gluc desir/chondro desir A/vit C/Mn (GLUCOSAMINE 1500 COMPLEX ORAL) Take by mouth Active omeprazole (PriLOSEC) 20 mg capsule Take 1 capsule (20 mg total) by mouth daily Active allopurinoL (ZYLOPRIM) 300 mg tablet Take 1 tablet (300 mg total) by mouth daily Active nitroglycerin (NITROSTAT) 0.[address] 1 tablet (0.4 mg total) under the tongue every 5 (five) minutes as needed for chest pain May repeat dose q 5 min, up to 3 doses total 25 tablet 3 03/14/2020 Active atorvastatin (LIPITOR) 10 mg tablet 10/05/2021 Active hydroCHLOROthia zide (HYDRODIURIL) 12.5 mg tablet 09/19/2021 Acti ve metFORMIN (GLUCOPHAGE) 850 mg tablet TAKE 1 TABLET BY MOUTH TWICE A DAY WITH A MEAL 08/31/2021 Active Active Problems Problem Noted Date Diagnosed Date Lipid screening 11/04/2021 YOLI (obstructive sleep apnea) 10/23/2020 Hyperlipidemia LDL goal <100 03/14/2020 Anxiety 03/14/2020 Essential hypertension 03/14/2020 Abnormal stress test 03/14/2020 Atypical chest pain 03/14/2020 Palpitations 03/14/2020 Social History Tobacco Use Types Packs/Day Years Used Date Smoking Tobacco: Never Cigarettes Smokeless Tobacco: Never Tobacco Cessation:Counseling Given: Not Answered Alcohol Use Standard Drinks/Week Comments Never 0 (1 standard drink = 0.6 oz pur e alcohol) Personal Safety Answer Date Recorded Getting School Help Needed Not on file 05/04 Comments Unknown Sex and Gender Information Value Date Recorded Sex Assigned at Not on file Legal Sex Female 12:11 PM ENT CONSULTANT Gender Identity Female 03/17/2020 3:40 PM ENT CONSULTANT Sexual Orientation Straight 03/17/2020 3: 40 PM ENT CONSULTANT Last Filed Vital Signs Vital Sign Reading Time Taken Comments Blood Pressure 138/84 11/08/2023 8:14 AM CDT Pulse 91 11/08/2023 8:14 AM CDT Temperature - - Respiratory Rate - - Oxygen Saturation 99% 11/08/2023 8:14 AM CDT Inhaled Oxygen Concentration - - Weight 77.1 kg (170 lb) 11/08/2023 8:14 AM CDT Height 167.6 cm (5' 6) 11/08/2023 8:14 AM CDT Body Mass Index 27.44 11/08/2023 8:14 AM CDT Plan of Treatment Not on file Insurance [facility] MEDICARE ADVANTAGE [facility] MEDICARE ADVANTAGE Care Teams Screw Down Relationship Specialty Start Date End Date Hiram Sandoval MD PCP - General Family Medicine 03/05/20
--- OUTSIDE RECORDS SUMMARY | 2024-08-16 11:13 | XMS_ITS | Clinical Summary ---
Author Organization [facility] [place] [address] Address [address] [place] [address] Care Team Providers Care Engineering Test Specialist Name Role Phone Hiram Sandoval MD Primary Care Provider [phone] Allergies No known active allergies Medications quinapriL [...] 03/14/2020 Atypical chest pain 03/14/2020 Palpitations 03/14/2020 Surgical History Surgery Date Site/Laterality Comments HYSTERECTOMY 03/07/1999 - 03/06/2000 JOINT REPLACEMENT 03/07/2016 - 03/06/2017 Medical History Medical History Date Comments Anxiety Cataract 2018 Hypertension 1992 Kidney stone 2008 Sleep apnea Family History Medical History Relation Name Comments Hypertension Father [place] Cancer Mother Pinky Hypertension Mother Pinky Hypertension Paternal Grandmother Raquel Relation Name Status Comments Father [place] Mother Pinky Paternal Grandmother Raquel Social History Tobacco Use Types Packs/Day Years [...] on file Legal Sex Female 12:11 PM SOFTWARE COMPUTER SPECIALIST Gender Identity Female 03/17/2020 3:40 PM SOFTWARE COMPUTER SPECIALIST Sexual Orientation Straight 03/17/2020 3: 40 PM SOFTWARE COMPUTER SPECIALIST Obstetrics History Last Filed Vital Signs Vital Sign Reading [...] 11/08/2023 8:14 AM CDT Plan of Treatment Health Maintenance Due Date Last Done Comments Breast Cancer Screening-Mammogram 1955 Colon Cancer Screening-Colonoscopy 1953 Depression Screening 1953 Fall Risk Assessment 1955 Hepatitis C Screening 1955 Osteoporosis Screening-Bone Density Scan 1953 DTaP/Tdap/Td Vaccine (1 - Tdap) 1964 Hepatitis B Screening 11/30/1971 Well Visit 65+ 2018 Zoster Vaccine (2 of 2) 02/22/2020 12/28/2019 Pneumococcal vaccine 65+ (2 of 2 - PPSV23) 2020 11/30/2019 Influenza Vaccine (Season Ended) 2024 11/13/19 20, 12/13/2017 Insurance [facility] MEDICARE ADVANTAGE [facility] Address: [address] [address] [place] [address] [facility] MEDICARE ADVANTAGE [facility] Address: [address] [address] [place] [address] Care Teams Engineering Test Specialist Relationship Specialty Start Date End Date Hiram Sandoval MD PCP - General Family Medicine 03/05/20
--- OUTSIDE RECORDS SUMMARY | 2024-08-16 11:13 | XMS_ITS | Encounter Summary ---
Author Organization [facility] Address [address] [place] [address] Care Team Providers Care Camera Systems Engineer Name Role Phone Galo Helms MD Unavailable [phone] Hiram Sandoval MD Primary Care Provider [phone] Encounter Details Date Type Department Care Team (Late st Contact Info) Description 08/10/2022 Lab Requisition [facility] - DermPath Lab [address] [place] [address] Mayda Gomez DO [address] [facility] [address] [place] [address] Social History Tobacco Use Types Packs/Day Years [...] Author No 01/13/2018 11:18 AM Idania Laboy, COLLECTION ANALYST-[employer] PROPRIETOR * Does person have difficulty dressing/bathing? Answer Date of Assessment Author No 01/13/2018 11:18 AM Idania Laboy, COLLECTION ANALYST-[employer]XI PROPRIETOR * Does person have difficulty doing errands alone? Answer Date of Assessment Author No 01/13/2018 11:18 AM Idania Laboy, COLLECTION ANALYST-[employer]XI PROPRIETOR documented as of this encounter Mental Status * Does person have difficulty concentrating/remembering/making decisions? Answer Entry Date Author No 01/13/2018 11:18 AM Idania Laboy, COLLECTION ANALYST-[employer]XI PROPRIETOR documented in this encounter Plan of Treatment Not on file documented as of this encounter Goals Goal Patient Goal Type Associated Problems Recent Progress Patient-Stated? 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[employer]) No Natacha Donald RN Note: Expected end date: on-going Interventions: Take all medications as prescribed Let your doctor know right away about any changes in your medications Make sure to request a refill of your medication at least one week prior to your last dose documented as of this encounter Procedures Procedure Name Priority Date/Time Associated Diagnosis Comments DERMATOPATHOLOGY Routine 08/10/2022 8:36 AM CDT documented in this encounter Results * DERMATOPATHOLOGY (08/10/2022 8:36 AM CDT) Case Report Dermatopathology Report Case: [id number] Authorizing Provider: Mayda Gomez DO Collected: 08/10/2022 08:36 AM Ordering Location: [facility] DermPath Lab Received: 08/10/2022 12:22 PM Pathologist: Zo Horna MD Specimen: Skin, right forearm 3 3:09 PM CDT DERMATOPATHOLOGY LABORATORY Final Diagnosis Specimen A. SKIN, right forearm: DERMAL SCAR RESIDUAL SQUAMOUS CELL CARCINOMA NOT IDENTIFIED (L90.5) 3 3:09 PM CDT DERMATOPATHOLOGY LABORATORY at 1509 CDT Clinical History SCCIS Bx proven 3 3:09 PM CDT DERMATOPATHOLOGY LABORATORY Gross Description Specimen A: Received is one formalin filled container labeled with the patient's name and designated right forearm. The specimen consists of a non-oriented ellipse of skin measuring [id number] mm. The epidermal surface is unremarkable. The margin is inked green. The 12 o'clock and 6 o'clock tips are submitted in cassette 1. The remainder of the ellipse is serially sectioned and submitted in cassette 2-3. Jar 0. 3 3:09 PM T DERMATOPATHOLOGY LABORATORY Microscopic Description Specimen A. SKIN, right forearm: There are fibroblasts and collagen bundles oriented parallel to the skin surface. There are elongated blood vessels, some of which are oriented perpendicular to the skin surface. No residual squamous cell carcinoma is identified. 3 3:09 PM T DERMATOPATHOLOGY LABORATORY Disclaimer An external and internal positive and negative controls are appropriate for the histochemical, immunohistochemical and immunofluorescence stain(s) in this case (if any), except where stated explicitly. The performance characteristics of the stain(s) cited in this report were developed and its performance characteristic determined by the Dermatopathology Laboratory at [facility], directed by Dr. Bunny Shabazz. These tests need not be, and therefore are not, approved by the [place] Food and Drug Administration. The tests are used for clinical purposes. Billing Codes Specimen Charges Stain Charges 98596 1 3 3:09 PM CDT DERMATOPATHOLOGY LABORATORY Embedded Images 3 3:09 PM CDT DERMATOPATHOLOGY LABORATORY Pathology/Cytolo gy TISSUE SPECIMEN FROM SKIN / Unknown 08/10/2022 8:36 AM CDT 08/10/2022 12:22 PM CDT us Mayda Gomez DO LAB - PATHOLOGY/CYTOLOGY ORDERABLES Final Result DERMATOPATHOLOGY LABORATORY [facility] - Department of Dermatology [address], [address] [phone] documented in this encounter Visit Diagnoses Not on filedocumented in this encounter Care Teams Camera Systems Engineer Relationship Specialty Start Date End Date Hiram Sandoval MD [address] [place], [place] [phone] PCP - General Family Medicine 07/04/17 [place] [id number] [phone] Orthopedic Surgery 07/04/17 documented as of this encounter
== END 2024-08-16 10:22 | disposition home or self-care (01) ==
LOC: ANHIMG 10:22
PROVIDERS: PCP Family Medicine; Visit Provider Family Medicine
DX: Z12.31 Encounter for screening mammogram for malignant neoplasm of breast (principal)
CPT/HCPCS: 77063; 77067